=== PATIENT | female | born 1995 | race Caucasian/White ===

== ENCOUNTER 2016-10-23 10:09 | Emergency (ER) | payer MEDICAID ==
[~2016-10-23] VITALS: Ht 152.4 cm; Wt 76.0 kg
[~2016-10-23 10:09] MED LIST: OCD PO; PREN-88 PO
[2016-10-23] MEDS ORDERED: KETOROLAC 30MG/ML VIAL IM ONE (11:00)
[2016-10-23 13:20] VITALS: BP 118/67
== END 2016-10-23 18:41 | disposition home or self-care (01) ==
LOC: ER 10:09
DX: S60.211A Contusion of right wrist, initial encounter (principal); S60.221A Contusion of right hand, initial encounter; J45.909 Unspecified asthma, uncomplicated; Z98.890 Other specified postprocedural states; X58.XXXA Exposure to other specified factors, initial encounter; Y93.89 Activity, other specified; Y92.018 Other place in single-family (private) house as the place of occurrence of the external cause
CPT/HCPCS: 29125; 73100; 73130; 96372; 99284; J1885

== ENCOUNTER 2019-10-26 00:03 | Emergency (ER) | payer MEDICAID ==
[~2019-10-26] VITALS: Ht 144.8 cm; Wt 118.0 kg
[2019-10-26] MEDS ORDERED: KETOROLAC 60MG/2ML VIAL IM ONE (00:30)
[2019-10-26] MEDS ORDERED: LIDOCAINE 5% PATCH TOP SCH (00:30)
[2019-10-26 01:02] LABS: CLARITY URINE CLEAR (CLEAR); COLOR URINE YELLOW (YELLOW); KETONES URINE NEGATIVE (NEGATIVE); LEUKOCYTE ESTERASE URINE TRACE (NEGATIVE); NITRITE URINE NEGATIVE (NEGATIVE); OCCULT BLOOD URINE NEGATIVE (NEGATIVE); PROTEIN URINE NEGATIVE (NEGATIVE); SPECIFIC GRAVITY URINE 1.028 (1.005-1.030)
[2019-10-26 04:23] VITALS: BP 110/68
== END 2019-10-26 04:24 | disposition home or self-care (01) ==
LOC: ER 00:03
DX: M54.89 Other dorsalgia (principal); R07.89 Other chest pain; E66.9 Obesity, unspecified; Z68.43 Body mass index [BMI] 50.0-59.9, adult
CPT/HCPCS: 71045; 81003; 81025; 93005; 96372; 99285; J1885

== ENCOUNTER 2020-01-18 08:04 | Emergency (ER) | payer MEDICAID ==
[~2020-01-18] VITALS: Ht 144.8 cm; Wt 113.0 kg
[2020-01-18] MEDS ORDERED: KETOROLAC 30MG/ML VIAL IM ONE (08:45)
[2020-01-18 10:03] VITALS: BP 136/72
[2020-01-22] MEDS ORDERED: FLUT1DIS3 INH (00:37)
[2020-01-22] MEDS ORDERED: ALBU6.7H9 INH (00:37)
== END 2020-01-18 10:03 | disposition home or self-care (01) ==
LOC: ER 08:04
DX: S80.01XA Contusion of right knee, initial encounter (principal); W01.0XXA Fall on same level from slipping, tripping and stumbling without subsequent striking against object, initial encounter; Y93.89 Activity, other specified; Y92.038 Other place in apartment as the place of occurrence of the external cause
CPT/HCPCS: 73562; 81025; 96372; 99283; J1885; L1830

== ENCOUNTER 2022-11-29 15:20 | Emergency (ER) | payer BC, MEDICAID ==
[~2022-11-29] VITALS: Ht 162.6 cm; Wt 104.0 kg
[~2022-11-29 15:20] MED LIST changes: +ALBU6.7H3 INH; +FLUT1DIS3 INH; -OCD PO; -PREN-88 PO
[2022-11-29 15:47] VITALS: BP 119/65; PULSE 84; RESP 20; TEMP 98.5; O2SAT 99
[2022-11-29 17:00] LABS: BASOPHILS % 0.8 % (0.0-2.0); CALCIUM 8.3 mg/dL (8.5-10.1); CHLORIDE 107 mEq/L (98-107); EOSINOPHILS % 4.4 % (0.0-5.0); HEMATOCRIT. 36.2 % (36.0-48.0); HEMOGLOBIN. 11.8 g/dL (12.0-16.0); INDEX HEMOLYSI 1 (1-3); INDEX ICTERIC 1 (1-4); INDEX LIPEMIC 1 (1-3); LYMPHOCYTES % 31.3 % (20.0-50.0); MEAN CORPUSCULAR HEMOGLOBIN 28.7 pg (28.0-32.0); MEAN CORPUSCULAR HGB CONC 32.6 g/dL (31.0-37.0); MEAN PLATELET VOLUME 7.8 fl (7.4-10.4); MONOCYTES % 8.3 % (2.0-8.0); NEUTROPHILS % 55.2 % (40.0-76.0); PLATELET 318 x1000/uL (130-400); RED BLOOD CELL COUNT 4.11 mill/uL (4.2-5.4); RED CELL DISTRIBUTION WIDTH 14.6 % (11.6-14.6); SODIUM 137 mEq/L (136-145); WHITE BLOOD COUNT 9.8 x1000/uL (4.5-11.0)
[2022-11-29] MEDS ORDERED: IBUPROFEN 600MG TABLET PO SCH (17:00)
[2022-11-29 17:06] LABS: ALANINE AMINOTRANSFERASE 23 IU/L (13-61); ALBUMIN 3.7 g/dL (3.4-5.0); ASPARTATE AMINOTRANSFERASE 18 IU/L (15-37); BILIRUBIN TOTAL 0.2 mg/dL (0.1-1.0); CARBON DIOXIDE 29 mEq/L (21-32); CREATININE 0.6 mg/dL (0.6-1.3); GLUCOSE 100 mg/dL (70-105); PROTEIN TOTAL 7.1 g/dL (6.0-8.3); UREA NITROGEN BLOOD 15 mg/dL (7-21)
[2022-11-29] MEDS ORDERED: IBUP-2029 MT (17:17)
== END 2022-11-29 18:13 | disposition home or self-care (01) ==
LOC: ER 15:20
DX: S92.911A Unspecified fracture of right toe(s), initial encounter for closed fracture (principal); J45.909 Unspecified asthma, uncomplicated; Z98.890 Other specified postprocedural states; X58.XXXA Exposure to other specified factors, initial encounter; Y93.89 Activity, other specified; Y92.89 Other specified places as the place of occurrence of the external cause; Y99.8 Other external cause status
CPT/HCPCS: 36415; 73660; 80053; 81025; 85025; 99284

== ENCOUNTER 2023-02-21 19:04 | Emergency (ER) | payer BC, MEDICAID ==
[~2023-02-21] VITALS: Ht 157.5 cm; Wt 91.0 kg
[~2023-02-21 19:04] MED LIST changes: +IBUP-2029 MT
[2023-02-21 19:13] VITALS: BP 128/81; PULSE 74; RESP 18; TEMP 98.5; O2SAT 98
== END 2023-02-21 23:12 | disposition left against medical advice (07) ==
LOC: ER 19:04
DX: J45.909 Unspecified asthma, uncomplicated (principal); Z53.21 Procedure and treatment not carried out due to patient leaving prior to being seen by health care provider
CPT/HCPCS: 99281

== ENCOUNTER 2023-10-22 12:14 | Emergency (ER) | payer BC, MEDICAID ==
[~2023-10-22] VITALS: Ht 144.8 cm; Wt 91.0 kg
[2023-10-22 12:21] VITALS: TEMP 98
[2023-10-22] MEDS: PREDNISONE 20MG TABLET PO STA (13:45)
[2023-10-22 14:45] VITALS: PULSE 92; RESP 24; O2SAT 95
[2023-10-22] MEDS: IPRATROPIUM BROMIDE (0.02%) 0.5MG/2.5ML NEB HHN STA (15:07)
[2023-10-22] MEDS: ALBUTEROL (0.083%) 2.5MG/3ML NEB HHN STA (15:07)
[2023-10-22] MEDS ORDERED: ALBU90AE INH (16:15)
[2023-10-22] MEDS ORDERED: P20 MT (16:15)
[2023-10-22] MEDS ORDERED: ALBU05 NEB (16:15)
[2023-10-22 16:46] VITALS: BP 150/87; PULSE 111; RESP 20; O2SAT 96
== END 2023-10-22 16:50 | disposition home or self-care (01) ==
LOC: ER 12:30
DX: J45.901 Unspecified asthma with (acute) exacerbation (principal); F12.90 Cannabis use, unspecified, uncomplicated; D64.9 Anemia, unspecified; Z98.890 Other specified postprocedural states
CPT/HCPCS: 81025; 94640; 99285; J7512; Z7610